=== PATIENT | male | born 1960 | race Caucasian/White ===

== ENCOUNTER 2022-04-01 16:15 | Inpatient (IN) ==
[2022-04-01 16:51] LABS: Basophils % 0.7 % (0.0-0.8); Eosinophils # 0.3 10*3/uL (0.0-0.87); Eosinophils % 5.6 % (0.00-10.9); Hematocrit 44.5 VOL% (42.0-52.0); Hemoglobin 15.1 GM/DL (14.0-18.0); Immature Granulocytes % 0.5 %; Immature Granulocytes Absolute 0.03 #; Lymphocytes # 0.9 10*3/uL (1.4-4.0); Lymphocytes % 15.8 % (21.2-54.2); Mean Corpuscular HGB Conc 33.9 GM/DL (32-36); Mean Corpuscular Volume 88.6 FL (87-102); Monocytes # 0.4 10*3/uL (0.11-0.8); Monocytes % 6.3 % (1.7-12.7); Neutrophils % 71.1 % (38.7-73.9); Platelet Count 196 T/CUMM (130-400); Red Blood Count 5.02 MC/CUMM (3.8-5.5); Red Cell Distribution Width 13.2 % (9.3-17.3); White Blood Count 5.6 T/CUMM (4-12)
[2022-04-01 17:10] LABS: INR 0.9; PT Patient Result 10.1 SECS (10.1-12.1); Partial Thromboplastin Time 27.7 SECS (23.7-32.9)
[2022-04-01 17:11] LABS: Albumin 4.1 G/DL (3.4-5.0); Bilirubin,Total 0.4 MG/DL (0.20-1.00); Calcium 9.7 MG/DL (8.5-10.1); Osmolality,Calculated 288.7 MOS/KG (273-304); Potassium 4.1 MMOL/L (3.5-5.1); Total Protein 6.7 G/DL (6.4-8.2)
[2022-04-01] MEDS ORDERED: ASPIRIN 325 MG TABLET PO STA (17:26)
[2022-04-01] MEDS ORDERED: NITROGLYCERIN 2% OINT 1 INCH/GM PACK TOP STA (17:26)
[2022-04-01] MEDS ORDERED: ASPIRIN 325 MG TABLET ONE (17:27)
[2022-04-01] MEDS ORDERED: NITROGLYCERIN 2% OINT 1 INCH/GM PACK TOP ONE (17:27)
[2022-04-01] MEDS ORDERED: hydrALAZINE 20 MG/1 ML VIAL IV STA (17:34)
[2022-04-01] MEDS ORDERED: hydrALAZINE 20 MG/1 ML VIAL ONE (17:35)
[2022-04-01] MEDS ORDERED: ENOXAPARIN 100 MG/ML SYRINGE SUBCUT STA (18:40)
[2022-04-01] MEDS ORDERED: GLUCAGON 1 MG VIAL IM PRN (19:11)
[2022-04-01] MEDS ORDERED: ONDANSETRON 4 MG/2 ML VIAL IV PRN (19:11)
[2022-04-01] MEDS ORDERED: DOCUSATE SODIUM 100 MG CAPSULE PO PRN (19:11)
[2022-04-01] MEDS ORDERED: DEXTROSE 10% 250 ML BAG IV PRN (19:22)
[2022-04-01] MEDS: ACETAMINOPHEN 325 MG TABLET PO PRN (20:01)
[2022-04-01] MEDS: INSULIN LISPRO 100 UNIT/ML SUBCUT SCH (21:25)
[2022-04-01] MEDS: carvediloL 12.5 MG TABLET PO SCH (21:26)
[2022-04-02 04:31] LABS: Basophils % 0.8 % (0.0-0.8); Eosinophils # 0.2 10*3/uL (0.0-0.87); Eosinophils % 4.2 % (0.00-10.9); Hematocrit 40.4 VOL% (42.0-52.0); Hemoglobin 13.6 GM/DL (14.0-18.0); Immature Granulocytes % 0.4 %; Immature Granulocytes Absolute 0.02 #; Lymphocytes # 1.1 10*3/uL (1.4-4.0); Lymphocytes % 20.8 % (21.2-54.2); Mean Corpuscular HGB Conc 33.7 GM/DL (32-36); Mean Corpuscular Volume 89.4 FL (87-102); Monocytes # 0.4 10*3/uL (0.11-0.8); Monocytes % 7.9 % (1.7-12.7); Neutrophils % 65.9 % (38.7-73.9); Platelet Count 173 T/CUMM (130-400); Red Blood Count 4.52 MC/CUMM (3.8-5.5); Red Cell Distribution Width 12.9 % (9.3-17.3); White Blood Count 5.2 T/CUMM (4-12)
[2022-04-02 04:59] LABS: Calcium 8.9 MG/DL (8.5-10.1); Osmolality,Calculated 285.3 MOS/KG (273-304); Potassium 3.3 MMOL/L (3.5-5.1); Risk Ratio 2.78; Thyroid Stimulating Hormone 9.19 uIU/ml (0.358-3.74); VLDL Cholesterol 14.2 MG/DL
[2022-04-02] MEDS ORDERED: ENOXAPARIN 100 MG/ML SYRINGE SUBCUT ONE (07:06)
[2022-04-02] MEDS ORDERED: MAGNESIUM SULF RIDER 2 GM/50 ML PREMIX IV PRN (07:27)
[2022-04-02] MEDS ORDERED: DIAZEPAM 5 MG TABLET PO ONE (07:27)
[2022-04-02] MEDS ORDERED: diphenhydrAMINE CAP 50 MG CAPSULE PO ONE (07:27)
[2022-04-02] MEDS ORDERED: POTASSIUM CHLORIDE RIDER 10 MEQ/100 ML PREMIX IV PRN (07:27)
[2022-04-02] MEDS ORDERED: SODIUM CHLORIDE 0.9% 1,000 ML IV SCH (07:30)
[2022-04-02] MEDS ORDERED: POTASSIUM CHLORIDE 20 MEQ TABLET PO ONE (07:44)
[2022-04-02] MEDS: ACETAMINOPHEN 325 MG TABLET PO PRN (08:10)
[2022-04-02] MEDS: carvediloL 12.5 MG TABLET PO SCH (08:11)
[2022-04-02] MEDS ORDERED: PANTOPRAZOLE 40 MG TABLET PO SCH (09:00)
[2022-04-02] MEDS ORDERED: INFLUENZA VIRUS VACCINE 0.5 ML SYRINGE IM ONE (09:00)
[2022-04-02] MEDS ORDERED: ASPIRIN EC 81 MG TABLET PO SCH (09:00)
[2022-04-02] MEDS ORDERED: sitaGLIPtin 100 MG TABLET PO SCH (09:00)
[2022-04-02] MEDS ORDERED: CLOPIDOGREL 75 MG TABLET PO SCH (09:00)
[2022-04-02] MEDS ORDERED: ATORVASTATIN 80 MG TABLET PO SCH (09:00)
[2022-04-02] MEDS ORDERED: LOSARTAN 50 MG TABLET PO SCH (09:00)
[2022-04-02] MEDS ORDERED: POTASSIUM CHLORIDE 20 MEQ TABLET PO SCH (09:00)
[2022-04-02] MEDS ORDERED: HEPARIN/NACL 0.9% 2 UNITS/ML 2,000 UNIT/1,000 ML BAG IV ONE (09:12)
[2022-04-02] MEDS ORDERED: VERAPAMIL 5 MG/2 ML VIAL ONE (09:12)
[2022-04-02] MEDS ORDERED: NITROGLYCERIN DRIP 50 MG/250 ML BOTTLE IV ONE (09:12)
[2022-04-02] MEDS: INSULIN LISPRO 100 UNIT/ML SUBCUT SCH ×3 (09:34→17:58)
[2022-04-02] MEDS ORDERED: MIDAZOLAM 2 MG/2 ML VIAL ONE (10:15)
[2022-04-02] MEDS ORDERED: HYDROmorphone 1 MG/1 ML SYRINGE ONE (10:15)
[2022-04-02] MEDS: NITROGLYCERIN 2% OINT 1 INCH/GM PACK TOP SCH ×2 (14:31→19:06)
[2022-04-02 16:34] VITALS: BP 111/67
[2022-04-02] MEDS ORDERED: ENOXAPARIN 100 MG/ML SYRINGE SUBCUT SCH ×2 (19:00→21:00)
[2022-04-02] MEDS ORDERED: INSULIN GLARGINE 100 UNIT/ML SUBCUT SCH (21:00)
[2022-04-02] MEDS ORDERED: EZETIMIBE 10 MG TABLET PO SCH (21:00)
[2022-04-02] MEDS ORDERED: ENOXAPARIN 40 MG/0.4 ML SYRINGE SUBCUT SCH (21:00)
== END 2022-04-02 19:19 | disposition hospice, home (50) | DRG 281 ==
LOC: N.ED 16:15 → N.EDINP 16:15 → SUATTDRO 19:25 → N.EDINP 22:11 → N.TELES 22:32
PROVIDERS: ADMIT Emergency Medicine; ATTEND Internal Medicine Cardiovascular Disease